=== PATIENT | female | born 1985 | race Caucasian/White ===

== ENCOUNTER 2017-05-30 16:03 | Emergency (ER) | payer MEDICAID ==
[~2017-05-30] VITALS: Ht 167.6 cm; Wt 160.0 kg
[2017-05-30] MEDS ORDERED: DIAZEPAM 5 MG TABLET PO ONE (18:15)
[2017-05-30] MEDS ORDERED: PREDNISONE 20MG TABLET PO ONE (18:15)
[2017-05-30] MEDS ORDERED: KETOROLAC 60MG/2ML VIAL IM ONE (18:15)
[2017-05-30 19:28] VITALS: BP 135/72
== END 2017-05-30 20:00 | disposition home or self-care (01) ==
LOC: ER 16:03
DX: M54.30 Sciatica, unspecified side (principal); M25.552 Pain in left hip; Z90.49 Acquired absence of other specified parts of digestive tract
CPT/HCPCS: 96372; 99283; J1885; J7512; Z7610